=== PATIENT | female | born 1940 | race Caucasian/White ===

== ENCOUNTER 2022-03-27 12:13 | Inpatient (IN) ==
[2022-03-27] MEDS ORDERED: Perflutren Lipid Microsphere 1.3 ML in 0.9 % Sodium Chloride 8.7 ML IVP PRN (16:57)
[2022-03-27] MEDS ORDERED: Naloxone 0.4 MG/ML INJ IVP PRN (16:57)
[2022-03-27] MEDS ORDERED: Melatonin 3 MG TABLET PO PRN (16:57)
[2022-03-27] MEDS ORDERED: *HR* Dextrose 50 % in Water (Syg) 50 ML SYRINGE IVP PRN (17:02)
[2022-03-27] MEDS ORDERED: D5% in Water 1,000 ML IVC PRN (17:02)
[2022-03-27] MEDS ORDERED: Dextrose 4 GM Chewable Tablets PO PRN ×2 (17:02)
[2022-03-27] MEDS ORDERED: *HR* Heparin 5,000 UNIT/ML VIAL IVP PRN (17:12)
[2022-03-27] MEDS ORDERED: *HR* Heparin 5,000 UNIT/ML VIAL IVP ONE (17:12)
[2022-03-27] MEDS: Heparin 25,000UNIT/250ML 1/2NS 25,000 UNIT/250 ML IV.SOLN IVC SCH (17:53)
[2022-03-27 18:18] LABS: Heparin anti-factor XA UFH 0.09 IU/mL (0.30-0.70)
[2022-03-27 18:19] LABS: INR 1.1; Prothrombin Time 12.5 Seconds (9.4-12.1)
[2022-03-27 18:22] LABS: Hematocrit 37.6 % (35.3-44.9); Hemoglobin 12.2 g/dL (11.5-15.4); Mean Corpuscular HGB Conc 32.4 g/dL (31.6-35.5); Mean Corpuscular Hemoglobin 30.4 pg (28.0-33.3); Mean Corpuscular Volume 93.8 fL (83.0-100.0); Mean Platelet Volume 11.6 fL (9.4-12.4); Platelet Count 152 K/mcL (140-400); Red Blood Count 4.01 M/mcL (3.82-4.97); White Blood Count 6.5 K/mcL (4.3-11.1)
[2022-03-27] MEDS: carvediloL 6.25 MG TABLET PO SCH (20:25)
[2022-03-27] MEDS: Insulin LISPRO 300 UNITS/3 ML VIAL SUBQ SCH (20:26)
[2022-03-27] MEDS: lisinopriL 20 MG TABLET PO SCH (20:26)
[2022-03-28 01:02] LABS: Hematocrit 34.6 % (35.3-44.9); Hemoglobin 11.3 g/dL (11.5-15.4); Mean Corpuscular HGB Conc 32.7 g/dL (31.6-35.5); Mean Corpuscular Hemoglobin 30.5 pg (28.0-33.3); Mean Corpuscular Volume 93.3 fL (83.0-100.0); Mean Platelet Volume 12.2 fL (9.4-12.4); Platelet Count 136 K/mcL (140-400); Red Blood Count 3.71 M/mcL (3.82-4.97); Red Cell Distribution Width 14.9 % (11.5-14.5); White Blood Count 6.5 K/mcL (4.3-11.1)
[2022-03-28 01:03] LABS: INR 1.3
[2022-03-28 01:08] LABS: Calcium 8.5 mg/dL (8.6-10.3); Chol/HDL Ratio 2.7 (0-4.9); Potassium 3.8 mEq/L (3.5-5.1)
[2022-03-28] MEDS: Insulin LISPRO 300 UNITS/3 ML VIAL SUBQ SCH ×4 (08:43→20:49)
[2022-03-28] MEDS: Aspirin 81 MG TAB.CHEW PO SCH (08:47)
[2022-03-28] MEDS: carvediloL 6.25 MG TABLET PO SCH ×2 (08:47→19:54)
[2022-03-28] MEDS: lisinopriL 20 MG TABLET PO SCH ×2 (08:47→19:54)
[2022-03-28] MEDS: Furosemide 40 MG/4 ML VIAL IVP SCH (09:58)
[2022-03-28] MEDS: *HR* Heparin 5,000 UNIT/ML VIAL IVP PRN ×2 (16:58→23:36)
[2022-03-28] MEDS: Heparin 25,000UNIT/250ML 1/2NS 25,000 UNIT/250 ML IV.SOLN IVC SCH (17:19)
[2022-03-29 02:21] LABS: Basophils # 0.1 K/mcL (0.0-0.2); Basophils % 0.9 %; Eosinophils # 0.1 K/mcL (0.0-0.6); Eosinophils % 2.1 %; Hematocrit 34.4 % (35.3-44.9); Hemoglobin 11.3 g/dL (11.5-15.4); Immature Granulocytes % 0.2 % (0-4); Lymphocytes # 2.9 K/mcL (0.6-4.6); Lymphocytes % 50.6 %; Mean Corpuscular HGB Conc 32.8 g/dL (31.6-35.5); Mean Corpuscular Hemoglobin 30.6 pg (28.0-33.3); Mean Corpuscular Volume 93.2 fL (83.0-100.0); Mean Platelet Volume 11.6 fL (9.4-12.4); Monocytes # 0.5 K/mcL (0.0-1.3); Monocytes % 8.5 %; Neutrophils # 2.1 K/mcL (1.6-8.9); Platelet Count 134 K/mcL (140-400); Red Blood Count 3.69 M/mcL (3.82-4.97); Red Cell Distribution Width 15.1 % (11.5-14.5); Segmented Neutrophils % 37.7 %; White Blood Count 5.7 K/mcL (4.3-11.1)
[2022-03-29 02:36] LABS: Calcium 8.9 mg/dL (8.6-10.3); Potassium 3.9 mEq/L (3.5-5.1)
[2022-03-29] MEDS: Insulin LISPRO 300 UNITS/3 ML VIAL SUBQ SCH ×4 (07:18→20:18)
[2022-03-29] MEDS: lisinopriL 20 MG TABLET PO SCH (09:19)
[2022-03-29] MEDS: Furosemide 40 MG/4 ML VIAL IVP SCH (09:29)
[2022-03-29] MEDS: Aspirin 81 MG TAB.CHEW PO SCH (09:40)
[2022-03-29] MEDS: carvediloL 6.25 MG TABLET PO SCH ×2 (09:41→20:20)
[2022-03-29] MEDS: Heparin 25,000UNIT/250ML 1/2NS 25,000 UNIT/250 ML IV.SOLN IVC SCH (09:42)
[2022-03-29] MEDS ORDERED: *HR* FentaNYL (PF) 100 MCG/2 ML VIAL ONE (10:57)
[2022-03-29] MEDS ORDERED: 0.9 % Sodium Chloride 2,000 ML ONE (10:58)
[2022-03-29] MEDS ORDERED: Nitroglycerin 1,000 MCG/5 ML VIAL IV ONE (10:58)
[2022-03-29] MEDS ORDERED: *HR* Midazolam HCl 2 MG/2 ML VIAL ONE (10:58)
[2022-03-29] MEDS ORDERED: Heparin 1,000 UNITS/500 mL 500 ML ONE (10:58)
[2022-03-29] MEDS ORDERED: *HR* Heparin 10,000 UNIT/10 ML VIAL ONE (10:58)
[2022-03-29] MEDS ORDERED: ISOVUE-370 200 ML INFUS..BTL ONE (10:58)
[2022-03-30] MEDS: Ondansetron ODT 4 MG TAB.RAPDIS SL PRN (01:12)
[2022-03-30 01:50] LABS: Basophils % 0.5 %; Eosinophils # 0.1 K/mcL (0.0-0.6); Eosinophils % 1.9 %; Hematocrit 35.9 % (35.3-44.9); Hemoglobin 11.8 g/dL (11.5-15.4); Immature Granulocytes % 0.2 % (0-4); Lymphocytes # 1.8 K/mcL (0.6-4.6); Lymphocytes % 31.9 %; Mean Corpuscular HGB Conc 32.9 g/dL (31.6-35.5); Mean Corpuscular Hemoglobin 30.3 pg (28.0-33.3); Mean Corpuscular Volume 92.1 fL (83.0-100.0); Mean Platelet Volume 12.2 fL (9.4-12.4); Monocytes # 0.4 K/mcL (0.0-1.3); Monocytes % 7.3 %; Neutrophils # 3.3 K/mcL (1.6-8.9); Platelet Count 147 K/mcL (140-400); Red Cell Distribution Width 15.1 % (11.5-14.5); Segmented Neutrophils % 58.2 %; White Blood Count 5.7 K/mcL (4.3-11.1)
[2022-03-30 02:14] LABS: BUN/Creatinine Ratio 20 (6-26); Blood Urea Nitrogen 20 mg/dL (8-23); Calcium 9.1 mg/dL (8.6-10.3); Carbon Dioxide 23 mEq/L (23-29); Chloride 105 mEq/L (98-107); Glucose 106 mg/dL (70-105); Osmolality,Calculated 285 (280-300); Potassium 3.7 mEq/L (3.5-5.1); Sodium 136 mEq/L (136-145); eGFR For African Americans > 60 (> 60); eGFR For Non-African Americans 55 (> 60)
[2022-03-30] MEDS: Insulin LISPRO 300 UNITS/3 ML VIAL SUBQ SCH ×4 (07:29→20:46)
[2022-03-30] MEDS: carvediloL 6.25 MG TABLET PO SCH ×3 (07:34→16:05)
[2022-03-30] MEDS: Aspirin 81 MG TAB.CHEW PO SCH (07:34)
[2022-03-30] MEDS ORDERED: carvediloL 6.25 MG TABLET PO ONE (09:42)
[2022-03-30] MEDS: Heparin 25,000UNIT/250ML 1/2NS 25,000 UNIT/250 ML IV.SOLN IVC SCH (16:05)
[2022-03-30] MEDS: Acetaminophen 325 MG TABLET PO PRN (22:17)
[2022-03-31] MEDS: Insulin LISPRO 300 UNITS/3 ML VIAL SUBQ SCH ×4 (07:19→20:10)
[2022-03-31] MEDS: Aspirin 81 MG TAB.CHEW PO SCH (07:19)
[2022-03-31] MEDS: carvediloL 6.25 MG TABLET PO SCH ×2 (07:19→16:32)
[2022-03-31] MEDS ORDERED: Nitroglycerin 0.4 MG TAB.SUBL SL ONE (07:24)
[2022-03-31] MEDS ORDERED: Ipratropium/Albuterol Neb 3 ML IH PRN (07:25)
[2022-03-31] MEDS ORDERED: Nitroglycerin 0.4 MG TAB.SUBL SL PRN (07:25)
[2022-03-31] MEDS ORDERED: Ipratropium/Albuterol Neb 3 ML ONE (07:31)
[2022-03-31] MEDS ORDERED: Furosemide 40 MG/4 ML VIAL ONE (07:50)
[2022-03-31] MEDS: Ondansetron ODT 4 MG TAB.RAPDIS SL PRN (07:56)
[2022-03-31] MEDS ORDERED: Furosemide 40 MG/4 ML VIAL IVP ONE (07:59)
[2022-03-31] MEDS: Isosorbide MONOnitrate (24 HR) 30 MG TAB.ER.24H PO SCH (08:33)
[2022-03-31] MEDS: Heparin 25,000UNIT/250ML 1/2NS 25,000 UNIT/250 ML IV.SOLN IVC SCH (16:32)
[2022-03-31 18:05] LABS: Influenza A PCR Negative (Negative); Influenza B PCR Negative (Negative); Resp. Syncytial Virus PCR Negative (Negative)
[2022-03-31 18:06] LABS: Bacteria,Urine Few per hpf (None-Few); Bilirubin,Urine Negative (Negative); Blood,Urine Trace (Negative); Clarity,Urine Clear (Clear); Color,Urine Light-Yellow (Yellow); Glucose,Urine (UA) Normal (Normal); Hyaline Casts,Urine Few per lpf (None Seen); Ketones,Urine Negative (Negative); Leukocyte Esterase,Urine Large (Negative); Mucus,Urine Few per lpf (None-Few); Nitrite,Urine Negative (Negative); PH,Urine 5.5 pH Units (5.0-8.0); Protein,Urine Trace mg/dL (Neg-Trace); Specific Gravity,Urine 1.014 (1.010-1.025); Squamous Epithelial Cell,Urine Moderate per hpf (None-Few); Urobilinogen,Urine Normal (Normal); WBC,Urine 0-3 per hpf (0-3)
[2022-03-31 18:08] LABS: SARS-CoV-2 by PCR (In House) Positive (Negative)
[2022-03-31] MEDS: cefTRIAXone 1,000 MG in 0.9 % Sodium Chloride 10 ML IVP SCH (22:13)
[2022-04-01 05:12] LABS: Hematocrit 31.4 % (35.3-44.9); Hemoglobin 10.3 g/dL (11.5-15.4); Mean Corpuscular HGB Conc 32.8 g/dL (31.6-35.5); Mean Corpuscular Hemoglobin 30.5 pg (28.0-33.3); Mean Corpuscular Volume 92.9 fL (83.0-100.0); Mean Platelet Volume 11.9 fL (9.4-12.4); Platelet Count 105 K/mcL (140-400); Red Blood Count 3.38 M/mcL (3.82-4.97); Red Cell Distribution Width 15.2 % (11.5-14.5)
[2022-04-01 05:13] LABS: White Blood Count 2.4 K/mcL (4.3-11.1)
[2022-04-01 05:31] LABS: Calcium 8.1 mg/dL (8.6-10.3); Potassium 3.8 mEq/L (3.5-5.1)
[2022-04-01] MEDS: Insulin LISPRO 300 UNITS/3 ML VIAL SUBQ SCH ×4 (07:40→20:18)
[2022-04-01] MEDS: Isosorbide MONOnitrate (24 HR) 30 MG TAB.ER.24H PO SCH (08:08)
[2022-04-01] MEDS: Aspirin 81 MG TAB.CHEW PO SCH (08:08)
[2022-04-01] MEDS: Acetaminophen 325 MG TABLET PO PRN (08:09)
[2022-04-01] MEDS: carvediloL 6.25 MG TABLET PO SCH ×2 (08:09→18:04)
[2022-04-01] MEDS ORDERED: Furosemide 40 MG/4 ML VIAL IVP SCH (09:00)
[2022-04-01] MEDS: cefTRIAXone 1,000 MG in 0.9 % Sodium Chloride 10 ML IVP SCH (20:17)
[2022-04-01] MEDS: Heparin 25,000UNIT/250ML 1/2NS 25,000 UNIT/250 ML IV.SOLN IVC SCH (20:18)
[2022-04-02 03:21] LABS: Hemoglobin 10.5 g/dL (11.5-15.4); Mean Corpuscular HGB Conc 32.8 g/dL (31.6-35.5); Mean Corpuscular Hemoglobin 30.2 pg (28.0-33.3); Mean Platelet Volume 11.9 fL (9.4-12.4); Platelet Count 106 K/mcL (140-400); Red Blood Count 3.48 M/mcL (3.82-4.97); Red Cell Distribution Width 15.3 % (11.5-14.5); White Blood Count 2.3 K/mcL (4.3-11.1)
[2022-04-02 03:40] LABS: Calcium 7.8 mg/dL (8.6-10.3); Potassium 3.5 mEq/L (3.5-5.1)
[2022-04-02] MEDS: Insulin LISPRO 300 UNITS/3 ML VIAL SUBQ SCH ×4 (08:47→21:54)
[2022-04-02] MEDS: Isosorbide MONOnitrate (24 HR) 30 MG TAB.ER.24H PO SCH (08:58)
[2022-04-02] MEDS: carvediloL 6.25 MG TABLET PO SCH ×2 (08:58→17:29)
[2022-04-02] MEDS: Aspirin 81 MG TAB.CHEW PO SCH (08:58)
[2022-04-02] MEDS: Furosemide 40 MG/4 ML VIAL IVP SCH (08:59)
[2022-04-02] MEDS: Heparin 25,000UNIT/250ML 1/2NS 25,000 UNIT/250 ML IV.SOLN IVC SCH (09:03)
[2022-04-02] MEDS: cefTRIAXone 1,000 MG in 0.9 % Sodium Chloride 10 ML IVP SCH (22:19)
[2022-04-03 04:29] LABS: Basophils % 0.4 %; Eosinophils % 0.4 %; Hemoglobin 10.6 g/dL (11.5-15.4); Lymphocytes # 2.1 K/mcL (0.6-4.6); Lymphocytes % 81.2 %; Mean Corpuscular HGB Conc 33.1 g/dL (31.6-35.5); Mean Corpuscular Hemoglobin 30.1 pg (28.0-33.3); Mean Corpuscular Volume 90.9 fL (83.0-100.0); Mean Platelet Volume 12.3 fL (9.4-12.4); Monocytes # 0.3 K/mcL (0.0-1.3); Neutrophils # 0.2 K/mcL (1.6-8.9); Platelet Count 104 K/mcL (140-400); Red Blood Count 3.52 M/mcL (3.82-4.97); Red Cell Distribution Width 15.1 % (11.5-14.5); White Blood Count 2.6 K/mcL (4.3-11.1)
[2022-04-03 04:43] LABS: Calcium 7.9 mg/dL (8.6-10.3); Potassium 3.4 mEq/L (3.5-5.1)
[2022-04-03 05:08] LABS: Platelet Estimate Slight Decrease (Normal)
[2022-04-03] MEDS ORDERED: Potassium Chloride Elixir 20 MEQ/15 ML UDC PO ONE (08:56)
[2022-04-03] MEDS: carvediloL 6.25 MG TABLET PO SCH (15:11)
[2022-04-03] MEDS: Aspirin 81 MG TAB.CHEW PO SCH (15:11)
[2022-04-03] MEDS ORDERED: ISOVUE-370 200 ML INFUS..BTL ONE (15:29)
[2022-04-03] MEDS ORDERED: Nitroglycerin 1,000 MCG/5 ML VIAL IV ONE (15:29)
[2022-04-03] MEDS ORDERED: 0.9 % Sodium Chloride 2,000 ML ONE (15:29)
[2022-04-03] MEDS ORDERED: Heparin 1,000 UNITS/500 mL 500 ML ONE ×2 (15:29→17:28)
[2022-04-03] MEDS ORDERED: *HR* Heparin 10,000 UNIT/10 ML VIAL ONE (15:29)
[2022-04-03] MEDS ORDERED: *HR* FentaNYL (PF) 100 MCG/2 ML VIAL ONE (16:06)
[2022-04-03] MEDS ORDERED: *HR* Midazolam HCl 2 MG/2 ML VIAL ONE (16:06)
[2022-04-03] MEDS ORDERED: Ondansetron 4 MG/2 ML VIAL ONE (17:09)
[2022-04-03] MEDS: Insulin LISPRO 300 UNITS/3 ML VIAL SUBQ SCH (19:42)
[2022-04-04] MEDS: Ondansetron ODT 4 MG TAB.RAPDIS SL PRN (01:08)
[2022-04-04 07:13] LABS: Hematocrit 36.1 % (35.3-44.9); Hemoglobin 11.7 g/dL (11.5-15.4); Mean Corpuscular HGB Conc 32.4 g/dL (31.6-35.5); Mean Corpuscular Hemoglobin 30.4 pg (28.0-33.3); Mean Corpuscular Volume 93.8 fL (83.0-100.0); Mean Platelet Volume 12.1 fL (9.4-12.4); Platelet Count 103 K/mcL (140-400); Red Blood Count 3.85 M/mcL (3.82-4.97); Red Cell Distribution Width 15.3 % (11.5-14.5); White Blood Count 3.6 K/mcL (4.3-11.1)
[2022-04-04 07:43] LABS: Calcium 8.4 mg/dL (8.6-10.3); Potassium 4.7 mEq/L (3.5-5.1)
[2022-04-04] MEDS: Insulin LISPRO 300 UNITS/3 ML VIAL SUBQ SCH ×4 (09:11→19:54)
[2022-04-04] MEDS: Aspirin 81 MG TAB.CHEW PO SCH (09:30)
[2022-04-04] MEDS: carvediloL 6.25 MG TABLET PO SCH ×2 (09:31→17:36)
[2022-04-04] MEDS: Furosemide 40 MG/4 ML VIAL IVP SCH (09:31)
[2022-04-04] MEDS: Isosorbide MONOnitrate (24 HR) 30 MG TAB.ER.24H PO SCH (09:31)
[2022-04-05] MEDS ORDERED: Heparin 15,000 UNIT in 0.9 % Sodium Chloride 500 ML IV ONE (07:00)
[2022-04-05] MEDS ORDERED: del Nido Cardioplegia Solution PF ONE ×2 (07:00)
[2022-04-05] MEDS ORDERED: Buckersberg's Blood Cardioplegia PF ONE (07:00)
[2022-04-05] MEDS ORDERED: Norepinephrine 4 MG in 0.9 % Sodium Chloride 250 ML IVC PRN (07:00)
[2022-04-05] MEDS: Insulin LISPRO 300 UNITS/3 ML VIAL SUBQ SCH ×3 (08:07→23:42)
[2022-04-05] MEDS: Aspirin 81 MG TAB.CHEW PO SCH (10:08)
[2022-04-05] MEDS: carvediloL 6.25 MG TABLET PO SCH ×2 (10:08→18:18)
[2022-04-05] MEDS: Isosorbide MONOnitrate (24 HR) 30 MG TAB.ER.24H PO SCH (10:08)
[2022-04-05] MEDS: Furosemide 40 MG/4 ML VIAL IVP SCH (10:09)
[2022-04-06] MEDS: carvediloL 6.25 MG TABLET PO SCH (09:11)
[2022-04-06] MEDS: Insulin LISPRO 300 UNITS/3 ML VIAL SUBQ SCH ×2 (09:11→12:31)
[2022-04-06] MEDS: Isosorbide MONOnitrate (24 HR) 30 MG TAB.ER.24H PO SCH (09:11)
[2022-04-06] MEDS: Aspirin 81 MG TAB.CHEW PO SCH (09:11)
[2022-04-06 11:55] VITALS: BP 107/71; PULSE 68; TEMP 97.8; O2SAT 94
== END 2022-04-06 12:56 | disposition home or self-care (01) | DRG 246 ==
LOC: 2ANU → SUATTDRO 16:21 → 2ANU 03-31 18:11
PROVIDERS: ADMIT Pharmacist; ATTEND Student in an Organized Health Care Education/Training Program

== ENCOUNTER 2022-05-05 06:01 | Observation (INO) ==
[2022-05-05] MEDS ORDERED: Naloxone 0.4 MG/ML INJ IVP PRN (10:18)
[2022-05-05 11:18] LABS: Troponin I 0.25 ng/mL (< 0.04)
[2022-05-05] MEDS ORDERED: Aspirin Enteric Coated 81 MG Tablet PO SCH (11:57)
[2022-05-05] MEDS ORDERED: Perflutren Lipid Microsphere 1.3 ML in 0.9 % Sodium Chloride 8.7 ML IVP PRN (11:58)
[2022-05-05 12:31] LABS: Calcium 8.3 mg/dL (8.6-10.3); Potassium 4.1 mEq/L (3.5-5.1)
[2022-05-05] MEDS: Furosemide 40 MG/4 ML VIAL IVP SCH (15:43)
[2022-05-05] MEDS: *HR* Heparin 5,000 UNIT/ML VIAL SQ SCH (17:38)
[2022-05-05] MEDS: carvediloL 6.25 MG TABLET PO SCH (17:38)
[2022-05-06 02:11] LABS: Basophils % 0.7 %; Eosinophils # 0.1 K/mcL (0.0-0.6); Eosinophils % 2.3 %; Hemoglobin 10.8 g/dL (11.5-15.4); Immature Granulocytes % 0.4 % (0-4); Lymphocytes # 2.5 K/mcL (0.6-4.6); Lymphocytes % 44.5 %; Mean Corpuscular HGB Conc 32.7 g/dL (31.6-35.5); Mean Corpuscular Hemoglobin 30.3 pg (28.0-33.3); Mean Corpuscular Volume 92.7 fL (83.0-100.0); Mean Platelet Volume 10.8 fL (9.4-12.4); Monocytes # 0.5 K/mcL (0.0-1.3); Monocytes % 8.4 %; Neutrophils # 2.5 K/mcL (1.6-8.9); Platelet Count 160 K/mcL (140-400); Red Blood Count 3.56 M/mcL (3.82-4.97); Red Cell Distribution Width 15.4 % (11.5-14.5); Segmented Neutrophils % 43.7 %; White Blood Count 5.6 K/mcL (4.3-11.1)
[2022-05-06 02:23] LABS: Calcium 8.5 mg/dL (8.6-10.3); Potassium 3.5 mEq/L (3.5-5.1)
[2022-05-06 07:30] VITALS: TEMP 97.6
[2022-05-06] MEDS: Furosemide 40 MG/4 ML VIAL IVP SCH (08:46)
[2022-05-06] MEDS: carvediloL 6.25 MG TABLET PO SCH (08:46)
[2022-05-06] MEDS: *HR* Heparin 5,000 UNIT/ML VIAL SQ SCH (08:47)
[2022-05-06] MEDS ORDERED: Isosorbide MONOnitrate (24 HR) 30 MG TAB.ER.24H PO SCH (09:00)
[2022-05-06 10:58] VITALS: BP 137/67; PULSE 85; O2SAT 98
== END 2022-05-06 15:00 | disposition home or self-care (01) ==
LOC: 2NENU → SUATTDRO 09:48
PROVIDERS: ADMIT Internal Medicine; ATTEND Hospitalist

== ENCOUNTER 2022-08-14 14:55 | Inpatient (IN) ==
[2022-08-14] MEDS ORDERED: Melatonin 3 MG TABLET PO PRN (18:11)
[2022-08-14] MEDS ORDERED: Acetaminophen 325 MG TABLET PO PRN (18:11)
[2022-08-14] MEDS ORDERED: Naloxone 0.4 MG/ML INJ IVP PRN (18:11)
[2022-08-14] MEDS ORDERED: *HR* Heparin 5,000 UNIT/ML VIAL IVP ONE (18:18)
[2022-08-14] MEDS ORDERED: *HR* Heparin 5,000 UNIT/ML VIAL IVP PRN ×2 (18:18)
[2022-08-14] MEDS: carvediloL 6.25 MG TABLET PO SCH (18:50)
[2022-08-14] MEDS: Heparin 25,000UNIT/250ML 1/2NS 25,000 UNIT/250 ML IV.SOLN IVC SCH (18:53)
[2022-08-15 02:23] LABS: Basophils # 0.1 K/mcL (0.0-0.2); Basophils % 0.6 %; Eosinophils # 0.1 K/mcL (0.0-0.6); Eosinophils % 1.3 %; Hematocrit 38.3 % (35.3-44.9); Hemoglobin 12.5 g/dL (11.5-15.4); Immature Granulocytes % 0.3 % (0-4); Lymphocytes # 2.7 K/mcL (0.6-4.6); Lymphocytes % 34.7 %; Mean Corpuscular HGB Conc 32.6 g/dL (31.6-35.5); Mean Corpuscular Hemoglobin 29.6 pg (28.0-33.3); Mean Corpuscular Volume 90.8 fL (83.0-100.0); Mean Platelet Volume 11.9 fL (9.4-12.4); Monocytes # 0.6 K/mcL (0.0-1.3); Monocytes % 7.1 %; Neutrophils # 4.3 K/mcL (1.6-8.9); Platelet Count 140 K/mcL (140-400); Red Blood Count 4.22 M/mcL (3.82-4.97); Red Cell Distribution Width 14.8 % (11.5-14.5); White Blood Count 7.7 K/mcL (4.3-11.1)
[2022-08-15 02:51] LABS: Calcium 9.2 mg/dL (8.6-10.3); Potassium 3.6 mEq/L (3.5-5.1); Troponin I 0.72 ng/mL (< 0.04)
[2022-08-15] MEDS: carvediloL 6.25 MG TABLET PO SCH ×2 (08:33→16:43)
[2022-08-15] MEDS: Aspirin 81 MG TAB.CHEW PO SCH (08:33)
[2022-08-15] MEDS: Isosorbide MONOnitrate (24 HR) 30 MG TAB.ER.24H PO SCH (08:33)
[2022-08-15] MEDS ORDERED: Furosemide 40 MG TABLET PO SCH (09:00)
[2022-08-15] MEDS ORDERED: Iopamidol - 370 200 ML INFUS..BTL ONE (12:20)
[2022-08-15] MEDS ORDERED: Heparin 1,000 UNITS/500 mL 500 ML ONE ×2 (12:20→14:03)
[2022-08-15] MEDS ORDERED: 0.9 % Sodium Chloride 2,000 ML ONE (12:20)
[2022-08-15] MEDS ORDERED: *HR* Heparin 10,000 UNIT/10 ML VIAL ONE (12:20)
[2022-08-15] MEDS ORDERED: Nitroglycerin 1,000 MCG/5 ML VIAL IV ONE (12:20)
[2022-08-15] MEDS ORDERED: *HR* Midazolam HCl 2 MG/2 ML VIAL ONE (12:38)
[2022-08-15] MEDS ORDERED: *HR* FentaNYL (PF) 100 MCG/2 ML VIAL ONE (12:38)
[2022-08-15] MEDS ORDERED: 0.9 % Sodium Chloride 500 ML IVC SCH (16:00)
[2022-08-16 03:31] VITALS: O2SAT 96
[2022-08-16] MEDS: Aspirin 81 MG TAB.CHEW PO SCH (07:51)
[2022-08-16] MEDS: carvediloL 6.25 MG TABLET PO SCH (07:51)
[2022-08-16] MEDS: Isosorbide MONOnitrate (24 HR) 30 MG TAB.ER.24H PO SCH (07:51)
[2022-08-16] MEDS: Heparin 25,000UNIT/250ML 1/2NS 25,000 UNIT/250 ML IV.SOLN IVC SCH ×2 (07:52→13:59)
[2022-08-16 14:52] VITALS: BP 138/75; PULSE 93; TEMP 98
== END 2022-08-16 15:43 | disposition home or self-care (01) | DRG 281 ==
LOC: 3BNU → SUATTDRO 17:17
PROVIDERS: ADMIT Internal Medicine; ATTEND Registered Nurse

== ENCOUNTER 2022-08-29 11:14 | Observation (INO) ==
[2022-08-29] MEDS ORDERED: 0.9 % Sodium Chloride 1,000 ML ONE ×2 (11:44→14:16)
[2022-08-29] MEDS ORDERED: 0.9 % Sodium Chloride 3,000 ML ONE (11:49)
[2022-08-29] MEDS ORDERED: *HR* Heparin 10,000 UNIT/10 ML VIAL ONE ×2 (11:50→14:10)
[2022-08-29] MEDS ORDERED: Iopamidol - 370 200 ML INFUS..BTL ONE (11:50)
[2022-08-29] MEDS ORDERED: Heparin 1,000 UNITS/500 mL 500 ML ONE ×3 (11:50→14:11)
[2022-08-29] MEDS ORDERED: Nitroglycerin 1,000 MCG/5 ML VIAL IV ONE (11:50)
[2022-08-29] MEDS ORDERED: D5% in Water 250 ML ONE ×2 (12:05→13:34)
[2022-08-29] MEDS ORDERED: *HR* Midazolam HCl 2 MG/2 ML VIAL ONE ×2 (13:09→14:10)
[2022-08-29] MEDS ORDERED: *HR* FentaNYL (PF) 100 MCG/2 ML VIAL ONE ×2 (13:09→14:10)
[2022-08-29] MEDS ORDERED: Protamine Sulfate 50 MG/5 ML VIAL IVP ONE (15:37)
[2022-08-29] MEDS ORDERED: Furosemide 40 MG TABLET PO SCH (16:15)
[2022-08-29] MEDS: carvediloL 6.25 MG TABLET PO SCH (17:14)
[2022-08-29] MEDS ORDERED: Ondansetron 4 MG/2 ML VIAL IVP PRN (18:09)
[2022-08-29] MEDS: Acetaminophen 325 MG TABLET PO PRN (21:05)
[2022-08-30 02:53] LABS: Hemoglobin 10.6 g/dL (11.5-15.4)
[2022-08-30 03:10] LABS: BUN/Creatinine Ratio 17 (6-26); Blood Urea Nitrogen 17 mg/dL (8-23)
[2022-08-30] MEDS: carvediloL 6.25 MG TABLET PO SCH ×2 (08:53→17:52)
[2022-08-30] MEDS: Isosorbide MONOnitrate (24 HR) 30 MG TAB.ER.24H PO SCH (08:53)
[2022-08-30] MEDS: Aspirin 81 MG TAB.CHEW PO SCH (08:53)
[2022-08-30 09:56] LABS: Hematocrit 35.3 % (35.3-44.9); Hemoglobin 11.5 g/dL (11.5-15.4)
[2022-08-30] MEDS: Acetaminophen 325 MG TABLET PO PRN ×2 (13:56→21:22)
[2022-08-30] MEDS: Menthol 1 EACH LOZENGE PO PRN (17:51)
[2022-08-30 18:07] LABS: Adenovirus Not Detected (Not Detect); Coronavirus 229E Not Detected (Not Detect); Coronavirus HKU1 Not Detected (Not Detect); Coronavirus NL63 Not Detected (Not Detect); Coronavirus OC43 Not Detected (Not Detect); Human Metapneumovirus Not Detected (Not Detect); Human Rhinovirus/Enterovirus Not Detected (Not Detect); Influenza A Subtype 2009 H1 Not Detected (Not Detect); Influenza B Not Detected (Not Detect); Parainfluenza Virus 1 Not Detected (Not Detect); Parainfluenza Virus 2 Not Detected (Not Detect); Parainfluenza Virus 3 Not Detected (Not Detect); Parainfluenza Virus 4 Not Detected (Not Detect); Respiratory Syncytial Virus Not Detected (Not Detect); SARS-CoV-2 Not Detected (Not Detect)
[2022-08-30 18:08] LABS: Bordetella Pertussis Not Detected (Not Detect); Chlamydophila pneumoniae Not Detected (Not Detect); Mycoplasma pneumoniae Not Detected (Not Detect)
[2022-08-31 03:15] LABS: Hematocrit 30.6 % (35.3-44.9); Hemoglobin 10.1 g/dL (11.5-15.4); Mean Corpuscular Hemoglobin 30.1 pg (28.0-33.3); Mean Corpuscular Volume 91.3 fL (83.0-100.0); Mean Platelet Volume 11.5 fL (9.4-12.4); Platelet Count 141 K/mcL (140-400); Red Blood Count 3.35 M/mcL (3.82-4.97); Red Cell Distribution Width 15.1 % (11.5-14.5); White Blood Count 9.7 K/mcL (4.3-11.1)
[2022-08-31 03:30] LABS: Calcium 8.3 mg/dL (8.6-10.3); Potassium 3.3 mEq/L (3.5-5.1)
[2022-08-31 08:11] VITALS: TEMP 97.6
[2022-08-31] MEDS: Aspirin 81 MG TAB.CHEW PO SCH (08:21)
[2022-08-31] MEDS: Isosorbide MONOnitrate (24 HR) 30 MG TAB.ER.24H PO SCH (08:21)
[2022-08-31] MEDS: carvediloL 6.25 MG TABLET PO SCH (08:22)
[2022-08-31] MEDS: Menthol 1 EACH LOZENGE PO PRN (08:24)
[2022-08-31 11:14] VITALS: BP 111/46
[2022-08-31 12:23] LABS: Calcium 8.1 mg/dL (8.6-10.3); Hematocrit 29.9 % (35.3-44.9); Hemoglobin 9.9 g/dL (11.5-15.4); Potassium 3.7 mEq/L (3.5-5.1)
[2022-08-31 14:33] VITALS: PULSE 88; O2SAT 99
== END 2022-08-31 14:41 | disposition home or self-care (01) ==
LOC: INVDIALAB 11:14 → 2NNU 11:14
PROVIDERS: ADMIT Internal Medicine; ATTEND Internal Medicine